=== PATIENT | male | born 1990 | race Caucasian/White ===

== ENCOUNTER 2025-02-16 13:22 | Outpatient (CLI) | payer MEDICAID ==
--- NOTE | 2025-02-16 14:41 | RADIOLOGY REPORT ---
CLINICAL INDICATION: pain; 5TH [facility] JOINT DISLOCATIONS TECHNIQUE: 3 radiographic views of the right wrist were obtained. Comparison: None FINDINGS/IMPRESSION: There is posterior dislocation of the 5th carpometacarpal joint.
== END 2025-02-16 23:59 | disposition home or self-care (01) ==
LOC: RAD 13:22
PROVIDERS: ATTEND Orthopaedic Surgery
DX: S63.064A Dislocation of metacarpal (bone), proximal end of right hand, initial encounter (principal); M25.531 Pain in right wrist; X58.XXXA Exposure to other specified factors, initial encounter; Y93.89 Activity, other specified; Y92.89 Other specified places as the place of occurrence of the external cause; Y99.8 Other external cause status
CPT/HCPCS: 73110